=== PATIENT | male | born 1985 | race Hispanic/Latino ===

== ENCOUNTER 2025-09-11 07:08 | Day surgery (SDC) | payer OTHER ==
[2025-09-06 12:09] LABS: IMMATURE GRANULOCYTE ABSOLUTE 0.01 K/uL (0-1); NUCLEATED RED BLOOD CELLS 0.0 % (0.0-0.19); PLATELET COUNT (AUTO) 239 K/uL (130-400); RED BLOOD CELL COUNT(AUTO) 5.32 MIL/uL (4.50-6.20); RED CELL DISTRIBUTION WIDTH 12.4 % (11.0-15.5); WHITE BLOOD COUNT (AUTO) 4.7 K/uL (4.8-10.8)
[2025-09-06 12:19] LABS: INR 1.02 (0.85-1.15)
[2025-09-06 12:25] VITALS: BP 122/77; PULSE 73; RESP 16; TEMP 97.7
[2025-09-06 12:34] LABS: CREATININE 1.1 mg/dL (0.5-1.3); GLOMERULAR FILTR. RATE CALC 86.0 mL/min (>90); GLUCOSE,RANDOM 102.0 mg/dL (70-105); SODIUM SERUM 137.0 mmol/L (136-145); UREA NITROGEN, BLOOD 13.0 mg/dL (7-18)
[~2025-09-11] VITALS: Ht 170.2 cm; Wt 102.2 kg
[2025-09-11] VITALS (13 sets, daily range): BP systolic 119–137; BP diastolic 68–94; PULSE 74–93; RESP 16–18; TEMP 97.6–97.8
[2025-09-11] MEDS ORDERED: LACTATED RINGERS 1000ML 1,000 ML IV ONE (07:11)
[2025-09-11] MEDS ORDERED: FAMOTIDINE 20MG VIAL IV ONE (07:49)
[2025-09-11] MEDS ORDERED: INDOCYANINE GREEN 25 MG VIAL IJ ONE (07:50)
[2025-09-11] MEDS ORDERED: LIDOCAINE PF 100MG/5ML (2%) SYRINGE 5ML ONE (07:53)
[2025-09-11] MEDS ORDERED: MIDAZOLAM HCL 1 MG/ML 2ML VIAL ONE (07:56)
[2025-09-11] MEDS ORDERED: PROMETHAZINE HCL 25 MG/ML 1ML AMPULE IM PRN (09:30)
[2025-09-11] MEDS ORDERED: NEOSTIGMINE METHYLSULFATE 1MG/ML IV ONE (11:00)
[2025-09-11] MEDS ORDERED: GLYCOPYRROLATE 0.2 MG/ML 5 ML VIAL ONE (11:00)
--- NOTE | 2025-09-11 11:05 | OP ---
Operative Note: DATE OF PROCEDURE: 09/11/25 SURGEON: WILMAN BARROS MD UNDERWEAR CUTTER: [] ANESTHESIA: [] General ANESTHESIOLOGIST/CRIME INVESTIGATOR SPECIAL AGENT: [] PREOPERATIVE DIAGNOSIS: [] Chronic cholecystitis POSTOPERATIVE DIAGNOSIS: [] The same SYNOPSIS: [] PROCEDURE: [] Laparoscopic cholecystectomy ESTIMATED BLOOD LOSS: [] Minimal INDICATIONS: [] DESCRIPTION OF PROCEDURE: [] With the patient prepped in the usual fashion a supraumbilical incision was additionally directed to meet with placement of the trocar and abdomen insufflated. Three 5 mm trochars were placed in the right upper quadrant under direct vision. The gallbladder was exposed adhesions were taken down and I dissected triangle of Calot. The cystic duct was clearly identified was triple clipped and divided and the cystic artery was double clipped and divided. I took the gallbladder from the liver using cautery dissection and after removed from the liver bed I placed an in a bag. I cauterized the liver bed and I placed 40 cc of Marcaine 0.25% in the side of the abdomen as an abdominal tap block under direct vision. And after adequate hemostasis and irrigation I removed all the trochars under direct vision and the gallbladder was removed from the supraumbilical incision. After removing the gallbladder I placed interrupted [id number] Vicryl's and the fascia. All incisions were closed with 4-0 Monocryl and Dermabond. Patient was stable at the end of the procedure WILMAN BARROS MD Sep 11, 2025 11:05
== END 2025-09-11 12:22 | disposition home or self-care (01) ==
LOC: DAH 07:08
PROVIDERS: ATTEND Surgery
DX: K81.1 Chronic cholecystitis (principal); K21.9 Gastro-esophageal reflux disease without esophagitis; F32.A Depression, unspecified; E78.5 Hyperlipidemia, unspecified; G47.30 Sleep apnea, unspecified; Z83.3 Family history of diabetes mellitus; Z82.49 Family history of ischemic heart disease and other diseases of the circulatory system; Z82.3 Family history of stroke; Z79.899 Other long term (current) drug therapy
CPT/HCPCS: 80048; 85025; 85610; 85730; 36415; 47562; 88304; A4223 ×2; A4600; A6260; A4663; J7030; J7120; J1308; J3010; J0665 ×4; J3490 ×2; J2003; J2250; J2704; J2270; J2710; J0690; C1769 ×3; A4649; A4930; A4215; A4213; A4222; A4221; A4216